=== PATIENT | male | born 1990 | race Two or more races ===

== ENCOUNTER 2018-08-14 05:56 | Emergency (ER) | payer BC, MEDICAID ==
[~2018-08-14] VITALS: Ht 180.3 cm; Wt 102.1 kg
[2018-08-14 06:30] VITALS: BP 136/94
[2018-08-14 07:34] LABS: Basophils # (auto) 0.1 uL; Basophils % (auto) 0.9 % (0.0-2.0); Eosinophils # (auto) 0.2 uL; Eosinophils % (auto) 4.1 % (0.0-7.0); Hematocrit 48.7 % (41.0-53.0); Hemoglobin 16.6 g/dL (13.5-17.5); Lymphocytes # (auto) 1.9 uL; Lymphocytes % (auto) 30.9 % (10.0-50.0); Monocytes # (auto) 0.7 uL; Monocytes % (auto) 11.1 % (0.0-12.0); Neutrophils # (auto) 3.2 uL; Nucleated Red Blood Cells % 0.1 %; Platelet Count (auto) 208 10^3/uL (140-450); Red Blood Cells 5.36 10^6/uL (4.5-5.90); Red Cell Distribution Width 12.9 % (11.8-14.3)
[2018-08-14 07:49] LABS: Albumin 4.6 g/dL (3.4-5.0); Calcium 9.6 mg/dL (8.5-10.1)
[2018-08-14 07:53] LABS: BUN/Creatinine Ratio 17.5
[2018-08-14 07:54] LABS: Bilirubin, Total 0.4 mg/dL (0.2-1.0); Total Protein 8.1 g/dL (6.4-8.2)
[2018-08-14] MEDS ORDERED: LACTULOSE 20Gm/30ML SOLN PO ONE (08:30)
== END 2018-08-14 08:45 | disposition home or self-care (01) ==
LOC: ER 05:56
DX: K59.00 Constipation, unspecified (principal); F17.210 Nicotine dependence, cigarettes, uncomplicated; K44.9 Diaphragmatic hernia without obstruction or gangrene
CPT/HCPCS: 36415; 74176; 80053; 81002; 85025